=== PATIENT | male | born 1995 | race African-American/Black ===

== ENCOUNTER 2016-09-02 16:04 | Emergency (ER) | payer MEDICAID ==
[~2016-09-02] VITALS: Ht 162.6 cm; Wt 49.4 kg
[2016-09-02 17:45] VITALS: BP 148/69
== END 2016-09-02 17:45 | disposition home or self-care (01) ==
LOC: ED 16:04
DX: J06.9 Acute upper respiratory infection, unspecified (principal); J02.9 Acute pharyngitis, unspecified

== ENCOUNTER 2018-07-26 08:36 | Emergency (ER) | payer OTHER ==
[~2018-07-26] VITALS: Ht 162.6 cm; Wt 47.2 kg
[2018-07-26 08:49] VITALS: BP 113/78
== END 2018-07-26 10:01 | disposition home or self-care (01) ==
LOC: ED 08:36
DX: J06.9 Acute upper respiratory infection, unspecified (principal); J45.909 Unspecified asthma, uncomplicated; Z88.1 Allergy status to other antibiotic agents

== ENCOUNTER 2019-02-13 10:05 | Emergency (ER) | payer OTHER ==
[~2019-02-13] VITALS: Ht 162.6 cm; Wt 46.7 kg
[2019-02-13 10:14] VITALS: BP 124/78
== END 2019-02-13 11:20 | disposition home or self-care (01) ==
LOC: ED 10:05
DX: J00 Acute nasopharyngitis [common cold] (principal); J30.9 Allergic rhinitis, unspecified; Z88.1 Allergy status to other antibiotic agents